=== PATIENT | female | born 1975 | race Caucasian/White ===

== ENCOUNTER 2022-04-23 08:00 | Outpatient (CLI) | payer MEDICAID ==
--- NOTE | 2022-04-23 18:17 | XRAY Report ---
PROCEDURE: Finger(s) LT INDICATIONS: LEFT PINKIE FINGER INJURY TECHNIQUE: AP hand, 2 views of the fifth digit acquired. COMPARISON: Right hand and finger radiographs same day FINDINGS: Bones: No fractures or dislocations. Small lucent focus with a narrow zone of transition at the bas e of the fourth digit middle phalanx, possible subchondral cyst or enchondroma. Soft tissues: No suspicious soft tissue calcifications. IMPRESSION: No acute fracture identified. If symptoms persist, follow-up radiographs and/or CT or MRI may be help ful for further evaluation. Reviewed by: Aneesh Vasquez MD on 04/23/2022 6:15 PM PST Approved by: Aneesh Vasquez MD on 04/23/2022 6:15 PM PST Station ID: [id number]
--- NOTE | 2022-04-23 18:19 | XRAY Report ---
PROCEDURE: Finger(s) RT INDICATIONS: RIGHT RING FINGER INJURY TECHNIQUE: AP hand, 2 views of the fourth digit acquired. COMPARISON: Left hand and finger radiographs same day FINDINGS: Bones: No acute fractures or dislocations. No suspicious bony lesions. Soft tissues: No suspicious soft tissue calcifications. IMPRESSION: No acute fracture identified. If symptoms persist, follow-up radiographs and/or CT or MRI may be help ful for further evaluation. Reviewed by: Aneesh Vasquez MD on 04/23/2022 6:18 PM [facility] Approved by: Aneesh Vasquez MD on 04/23/2022 6:18 PM [facility] Station ID: [id number]
== END 2022-04-23 23:59 | disposition home or self-care (01) ==
LOC: DI.S 08:00
PROVIDERS: ATTEND Physician Assistant Medical
DX: S67.92XA Crushing injury of unspecified part(s) of left wrist, hand and fingers, initial encounter (principal)

== ENCOUNTER 2023-06-23 18:12 | Day surgery (SDC) | payer MEDICAID ==
--- NOTE | 2023-06-23 18:35 | ED Physician Documentation ---
PD HPI ABD PAIN - Stated complaint Stated Complaint: ABD PX - Chief complaint Chief Complaint: Abd Pain - History obtained from History obtained from: Patient - History of Present Illness Timing - onset: Today (Onset around 4 this morning of generalized to mid abdominal pain that has become more localized to the right lower quadrant through the day and increased in severity. Nausea and vomiting. Normal bowel movement today. No dysuria.) Timing - duration: Hours (12) Timing - details: Gradual onset, Still present Quality: Cramping, Aching, Pain Location: Periumbilical (The pain started more generalized and periumbilical and is moved to the right lower quadrant specifically and increased in severity.), RLQ Radiation: No: Chest, Right flank Improved by: No: Vomiting, BM Associated symptoms: Nausea, Vomiting (4 times through the day). No: Fever, Diarrhea, Constipation Similar symptoms before: Has not had sx before Recently seen: Clinic (Seen at walk-in clinic first and referred here for further evaluation more promptly due to severity of pain.) Review of Systems Constitutional: denies: Fever, Chills Nose: denies: Rhinorrhea / runny nose, Congestion Throat: denies: Sore throat Respiratory: denies: Cough GI: reports: Abdominal Pain, Nausea, Vomiting. denies: Constipation, Diarrhea : denies: Dysuria, Discharge, Irregular menses PD PAST MEDICAL HISTORY - Past Medical History Past Medical History: No - Past Surgical History Past Surgical History: No - Present Medications Home Medications: Ambulatory Orders Medication Instructions Recorded Confirmed No Known Home Medications 06/23/23 06/23/23 - Allergies Allergies/Adverse Reactions: Allergies Allergy/AdvReac Type Severity Reaction Status Date / Time No Known Drug Allergies Allergy Verified 06/23/23 18:21 - Social History Does the pt smoke?: No Smoking Status: Former smoker Does the pt drink ETOH?: Yes ETOH Use: Other Does the pt have substance abuse?: No Substance Use and Type: Marijuana PD ED PE NORMAL - Vitals Vital signs reviewed: Yes - General General: Alert and oriented X 3, Well developed/nourished, Other (Appears in considerable pain with right lower quadrant tenderness.) - Cardiac Cardiac: RRR, No murmur - Respiratory Respiratory: No respiratory distress, Clear bilaterally - Abdomen Abdomen: Soft, Non distended, No organomegaly, Other (Markedly tender with percussion and rebound tenderness in the right lower quadrant. Some referred tenderness from the left lower. No general peritoneal signs.) - Female Female : Deferred - Rectal Rectal: Deferred - Back Back: No CVA TTP - Derm Derm: Normal color - Neuro Neuro: Alert and oriented X 3, No motor deficit, Normal speech Results - Vitals Vitals: Vital Signs - 24 hr 06/23/23 18:15 Temperature 37 C Heart Rate 88 Respiratory 16 Rate Blood Pressure 128/88 H O2 Saturation 98 Oxygen O2 Source Room air - Labs Labs: Laboratory Tests 06/23/23 06/23/23 06/23/23 18:43 18:43 18:43 WBC 19.0 H RBC 5.02 Hgb 12.3 Hct 40.1 MCV 79.9 L MCH 24.5 L MCHC 30.7 L RDW 14.5 Plt Count 304 MPV 11.2 H Neut # (Auto) 16.8 H Lymph # (Auto) 1.3 L [place] # (Auto) 0.8 Eos # (Auto) 0.0 Baso # (Auto) 0.0 Absolute Nucleated RBC 0.00 Nucleated RBC % 0.0 Sodium 136 Potassium 3.5 Chloride 102 Carbon Dioxide 26 Anion Gap 8.0 BUN 11 Creatinine 0.6 Estimated GFR (MDRD) 107 Glucose 133 H Calcium 9.4 Total Bilirubin 0.6 AST 13 ALT 12 Alkaline Phosphatase 50 Total Protein 6.9 Albumin 4.3 Globulin 2.6 Albumin/Globulin Ratio 1.7 Lipase < 10 L Serum HCG, Qual NEGATIVE Urine Color Urine Clarity Urine pH Ur Specific [place] Urine Protein Urine Glucose (UA) Urine Ketones Urine Occult Blood Urine Nitrite Urine Bilirubin Urine Urobilinogen Ur Leukocyte Esterase Ur Microscopic Review Urine Culture Comments 06/23/23 19:20 WBC RBC Hgb Hct MCV MCH MCHC RDW Plt Count MPV Neut # (Auto) Lymph # (Auto) [place] # (Auto) Eos # (Auto) Baso # (Auto) Absolute Nucleated RBC Nucleated RBC % Sodium Potassium Chloride Carbon Dioxide Anion Gap BUN Creatinine Estimated GFR (MDRD) Glucose Calcium Total Bilirubin AST ALT Alkaline Phosphatase Total Protein Albumin Globulin Albumin/Globulin Ratio Lipase Serum HCG, Qual Urine Color YELLOW Urine Clarity CLEAR Urine pH 6.0 Ur Specific [place] <=1.005 Urine Protein NEGATIVE Urine Glucose (UA) NEGATIVE Urine Ketones NEGATIVE Urine Occult Blood NEGATIVE Urine Nitrite NEGATIVE Urine Bilirubin NEGATIVE Urine Urobilinogen 0.2 (NORMAL) Ur Leukocyte Esterase NEGATIVE Ur Microscopic Review NOT INDICATED Urine Culture Comments NOT INDICATED PD Medical Decision Making - ED course Complexity details: reviewed results, considered differential (Onset this morning of mid to general belly pain with nausea that has progressed to right lower quadrant and increased in severity. Very concerning for appendicitis. Consider ovarian cyst or torsion or an hemorrhage. Less likely UTI or kidney stone but evaluate with CT.), d/w patient ED course: SYmptoms and progression and exam most c/w appendicitis. Pending CT at time of shift change. Departure - Departure Disposition: ED Transfer to [facility] Clinical Impression: Appendicitis Abdominal pain Qualifiers: Abdominal location: right lower quadrant Qualified Code(s): R10.31 - Right lower quadrant pain Condition: Good
[2023-06-23] MEDS: SODIUM CHLORIDE 0.9% 1,000 ML IV STA ×2 (18:41→19:50)
[2023-06-23] MEDS: ONDANSETRON 4 MG/2 ML VIAL IVP STA (18:48)
[2023-06-23] MEDS: KETOROLAC 15 MG/ML VIAL IVP STA (18:51)
[2023-06-23 19:04] LABS: BASOPHILS % (AUTO) 0.2 %; HCT - HEMATOCRIT 40.1 % (37.0-47.0); HGB - HEMOGLOBIN 12.3 g/dL (12.0-16.0); LYMPHOCYTES # (AUTO) 1.3 10^3/uL (1.5-3.5); LYMPHOCYTES % (AUTO) 6.7 %; MEAN CORPUSCULAR HEMOGLOBIN 24.5 pg (27.0-31.0); MEAN CORPUSCULAR HGB CONC 30.7 g/dL (32.0-36.0); MEAN CORPUSCULAR VOLUME 79.9 fL (81.0-99.0); MEAN PLATELET VOLUME 11.2 fL (7.9-10.8); MONOCYTES # (AUTO) 0.8 10^3/uL (0.0-1.0); MONOCYTES % (AUTO) 4.2 %; NEUTROPHILS # (AUTO) 16.8 10^3/uL (1.5-6.6); NEUTROPHILS % (AUTO) 88.3 %; PLT - PLATELET COUNT 304 10^3/uL (130-450); RED BLOOD COUNT 5.02 10^6/uL (4.20-5.40); RED CELL DISTRIBUTION WIDTH 14.5 % (12.0-15.0)
[2023-06-23] MEDS: HYDROmorphone 0.5 MG/0.5 ML SYRINGE IVP STA (19:21)
[2023-06-23 19:22] LABS: ALBUMIN 4.3 g/dL (3.2-5.5); ALBUMIN/GLOBULIN RATIO 1.7 (1.0-2.2); ALKALINE PHOSPHATASE 50 IU/L (42-121); ALT ALANINE AMINOTRANSFERASE 12 IU/L (10-60); AST ASPARTATE AMINOTRANSFERASE 13 IU/L (10-42); BILIRUBIN,TOTAL 0.6 mg/dL (0.2-1.0); BUN - BLOOD UREA NITROGEN 11 mg/dL (6-20); CALCIUM 9.4 mg/dL (8.5-10.3); CARBON DIOXIDE - CO2 26 mmol/L (21-32); CHLORIDE 102 mmol/L (101-111); CREATININE 0.6 mg/dL (0.6-1.3); GFR - MDRD 107 (>89); GLUCOSE 133 mg/dL (74-104); POTASSIUM 3.5 mmol/L (3.5-4.5); SODIUM 136 mmol/L (135-145); TOTAL PROTEIN 6.9 g/dL (6.4-8.9)
[2023-06-23 19:27] LABS: HCG,QUALITATIVE BLOOD NEGATIVE
[2023-06-23 19:28] LABS: LIPASE < 10 U/L (11-82)
[2023-06-23] MEDS ORDERED: iohexoL-300 100 ML VIAL ONE (19:41)
[2023-06-23 19:44] LABS: BILIRUBIN,URINE NEGATIVE (NEGATIVE); GLUCOSE, URINE (UA) NEGATIVE (NEGATIVE); KETONES,URINE (UA) NEGATIVE (NEGATIVE); LEUKOCYTE ESTERASE, URINE NEGATIVE (NEGATIVE); NITRITE,URINE NEGATIVE (NEGATIVE); OCCULT BLOOD,URINE NEGATIVE (NEGATIVE); PROTEIN,URINE NEGATIVE (NEGATIVE); UROBILINOGEN,URINE 0.2 (NORMAL) E.U./dL (NORMAL)
[2023-06-23 19:45] LABS: CLARITY,URINE CLEAR (CLEAR)
[2023-06-23] MEDS: iohexoL-300 100 ML VIAL IVP ONE (20:12)
--- NOTE | 2023-06-23 21:04 | CT Report ---
PROCEDURE: Abdomen/Pelvis W INDICATIONS: mid to RLQ abd pain since this AM CONTRAST: Omni 300 100ml TECHNIQUE: After the administration of intravenous contrast, a CT scan of the abdomen and pelvis was performed. Images were recorded and evaluated at appropriate window settings. Reformats: coronal and sagittal. F or radiation dose reduction, the following was used: automated exposure control, adjustment of mA and /or kV according to patient size. COMPARISON: None. FINDINGS: Image quality: Diagnostic. Lower chest: Unremarkable. Liver: No solid mass. Gallbladder and biliary tree: No radiopaque stones or wall thickening. No biliary dilation. Spleen: No splenomegaly. Pancreas: No pancreatic ductal dilation. Adrenals: No adrenal nodule. Kidneys and ureters: No hydronephrosis. No renal cystic lesion which requires follow up. No solid mas s. Stomach, bowel and peritoneum: There is no bowel obstruction. Oral contrast is seen in the proximal a scending colon. Enlarged appendix measures up to 1.2 cm in size with appendiceal wall thickening and to moderate periappendiceal fat stranding suggestive of acute appendicitis series 4 image 61. Questio nable ascending and transverse colon wall thickening most likely due to under distention. No signific ant pericolonic fat stranding is seen. No abscess collection. No free fluid of free air. Lymph nodes: No central or retroperitoneal adenopathy. Small right lower quadrant mesenteric lymph no tien are seen. Vessels: No infrarenal aortic aneurysm. PELVIS Reproductive organs: Small bilateral ovarian cysts versus dominant follicles are seen.. Bladder: No abnormal wall thickening, accounting for underdistention. Pelvic lymph nodes: No pelvic adenopathy by size criteria. Bones: No aggressive osseous abnormality. Other: No significant ventral or inguinal hernia. IMPRESSION: 1. Finding is consistent with acute appendicitis. No abscess collection. No signs of perforation. Sma ll adjacent right lower quadrant mesenteric lymph nodes likely reactive in nature. 2. No bowel obstruction. Questionable ascending colon and transverse colon wall thickening most likel y due to under distention. Low-grade colitis cannot be entirely excluded suggest clinical correlation and follow-up. Reviewed by: Kirit Hinojosa MD on 06/23/2023 9:03 PM PDT Approved by: Kirit Hinojosa MD on 06/23/2023 9:03 PM PDT Station ID: [id number]
--- NOTE | 2023-06-23 22:34 | ED Physician Documentation ---
ED Addendum - Addendum Addendum: 06/23/23 22:33 I received signout/turnover of care from Dr. Interiano; please see his note for complete H&P. At the time of signout, CT of the abdomen and pelvis is pending. The results of the study are consistent with acute appendicitis without evidence of abscess nor perforation. I briefly evaluated the patient. She is in NAD but has significant tenderness to palpation of the right lower quadrant. Her abdominal exam on my evaluation is not suggestive of peritonitis. I discussed this case with Dr. Flood (on-call surgery for [facility]), who will admit patient to [facility] for planned appendectomy in the a.m.
[2023-06-23] MEDS ORDERED: SODIUM CHLORIDE FLUSH 0.9% 10 ML SYRINGE IVP PRN (22:38)
[2023-06-23] MEDS: PIPERACILLIN/TAZOBACTAM 3.375 GM in SODIUM CHLORIDE 0.9% MINIBAG 100 ML IV SCH (23:03)
[2023-06-23] MEDS: HYDROmorphone 1 MG/ML CARPUJECT IVP PRN (23:03)
[2023-06-24] MEDS: SODIUM CHLORIDE 0.9% 1,000 ML IV SCH (00:35)
[2023-06-24] MEDS: ACETAMINOPHEN 1,000 MG/100 ML 1,000 MG/100 ML BAG IV PRN (01:25)
[2023-06-24] MEDS: SODIUM CHLORIDE FLUSH 0.9% 10 ML SYRINGE IVP SCH (01:29)
[2023-06-24] MEDS ORDERED: SODIUM CHLORIDE 0.9% MINIBAG 100 ML IV ONE (05:35)
--- NOTE | 2023-06-24 06:43 | HISTORY & PHYSICAL EXAMINATION ---
HPI - Admitted From Admitted from: ED - History Obtained From History obtained from: Patient - History of Present Illness HPI Comment/Other: 47F, otherwise healthy, with onset of periumbilical abdominal pain associated with nausea and repeated emesis at 0400 on 06/22. Pain progressed to RLQ and efforts at relieving typical GI upset/constipationdid not improve the pain. Denies fever, SOB, CP. Last ate a small amount of food at 4pm yesterday. Never had pain like this before. PMH/PSH - Past Medical History Cardiovascular: positive: None Respiratory: positive: None Neuro: positive: None Endocrine/Autoimmune: positive: None GI: positive: None : positive: None Psych: positive: Other Musculoskeletal: positive: None Derm: positive: None MRSA Hx?: No Other Past Medical History: mild autism - Past Surgical History Other past surgical history: No PSH Social & Family Hx - Living Situation Living Situation: Other (Lives with 10yo son in [place]. *Traveling from [facility] to [place] by car tomorrow and to [place] by plane in 2 days.) - Social History Does the pt smoke?: No Smoking Status: Former smoker (20pk yr history, quit 11 years ago) Does the pt drink ETOH?: Yes ETOH Use: Other (social) Does the pt have substance abuse?: No Substance Use and Type: Marijuana - POLST Patient has POLST: No - Family History Family History Comment/Other: noncontributory Meds/Allgy - Home Medications Home Medications: Ambulatory Orders Medication Instructions Recorded Confirmed No Known Home Medications 06/23/23 06/23/23 - Allergies Allergies/Adverse Reactions: Allergies Allergy/AdvReac Type Severity Reaction Status Date / Time No Known Drug Allergies Allergy Verified 06/23/23 18:21 Review of Systems - Gastrointestinal Gastrointestinal: reports: Abdominal pain, Nausea, Vomiting Exam - Vital Signs Reviewed Vital Signs: Yes Vital Signs: Vital Signs x48h Temp Pulse Resp BP Pulse Ox 06/24/23 05:31 37.1 C 79 20 116/70 94 06/24/23 01:03 36.5 C 77 20 124/76 98 - Physical Exam General Appearance: positive: No acute distress Eyes Bilateral: positive: Normal inspection, PERRL ENT: positive: ENT inspection nml, Pharynx nml, No signs of dehydration Neck: positive: Nml inspection, Thyroid nml, No JVD, Trachea midline Respiratory: positive: Chest non-tender, No respiratory distress, Breath sounds nml Cardiovascular: positive: Regular rate & rhythm, No murmur, No gallop Peripheral Pulses: positive: 2+ Abdomen: positive: No distention, Tenderness (focal RLQ tenderness, + rosvings sign) Skin: positive: Color nml, No rash, Warm, Dry Extremities: positive: Non-tender, Full ROM, Nml appearance Neurologic/Psychiatric: positive: Oriented x3, Mood/affect nml Results - Lab Results Lab results reviewed: Yes Fish Bones: 06/23/23 18:43 06/23/23 18:43 Other Lab Results: Lab Results x24hrs 06/23/23 06/23/23 06/23/23 Range/Units 19:20 18:43 18:43 WBC (4.8-10.8) x10^3/uL RBC (4.20-5.40) 10^6/uL Hgb (12.0-16.0) g/dL Hct (37.0-47.0) % MCV (81.0-99.0) fL MCH (27.0-31.0) pg MCHC (32.0-36.0) g/dL RDW (12.0-15.0) % Plt Count (130-450) 10^3/uL MPV (7.9-10.8) fL Neut # (Auto) (1.5-6.6) 10^3/uL Lymph # (Auto) (1.5-3.5) 10^3/uL [place] # (Auto) (0.0-1.0) 10^3/uL Eos # (Auto) (0.0-0.7) 10^3/uL Baso # (Auto) (0.0-0.1) 10^3/uL Absolute Nucleated RBC x10^3/uL Nucleated RBC % /100WBC Sodium 136 (135-145) mmol/L Potassium 3.5 (3.5-4.5) mmol/L Chloride 102 (101-111) mmol/L Carbon Dioxide 26 (21-32) mmol/L Anion Gap 8.0 (6-13) BUN 11 (6-20) mg/dL Creatinine 0.6 (0.6-1.3) mg/dL Estimated GFR (MDRD) 107 (>89) Glucose 133 H (74-104) mg/dL Calcium 9.4 (8.5-10.3) mg/dL Total Bilirubin 0.6 (0.2-1.0) mg/dL AST 13 (10-42) IU/L ALT 12 (10-60) IU/L Alkaline Phosphatase 50 (42-121) IU/L Total Protein 6.9 (6.4-8.9) g/dL Albumin 4.3 (3.2-5.5) g/dL Globulin 2.6 (2.1-4.2) g/dL Albumin/Globulin Ratio 1.7 (1.0-2.2) Lipase < 10 L (11-82) U/L Serum HCG, Qual NEGATIVE Urine Color YELLOW Urine Clarity CLEAR (CLEAR) Urine pH 6.0 (5.0-7.5) PH Ur Specific [place] <=1.005 (1.002-1.030) Urine Protein NEGATIVE (NEGATIVE) mg/dL Urine Glucose (UA) NEGATIVE (NEGATIVE) mg/dL Urine Ketones NEGATIVE (NEGATIVE) mg/dL Urine Occult Blood NEGATIVE (NEGATIVE) Urine Nitrite NEGATIVE (NEGATIVE) Urine Bilirubin NEGATIVE (NEGATIVE) Urine Urobilinogen 0.2 (NORMAL) (NORMAL) E.U./dL Ur Leukocyte Esterase NEGATIVE (NEGATIVE) Ur Microscopic Review NOT INDICATED Urine Culture Comments NOT INDICATED 06/23/23 Range/Units 18:43 WBC 19.0 H (4.8-10.8) x10^3/uL RBC 5.02 (4.20-5.40) 10^6/uL Hgb 12.3 (12.0-16.0) g/dL Hct 40.1 (37.0-47.0) % MCV 79.9 L (81.0-99.0) fL MCH 24.5 L (27.0-31.0) pg MCHC 30.7 L (32.0-36.0) g/dL RDW 14.5 (12.0-15.0) % Plt Count 304 (130-450) 10^3/uL MPV 11.2 H (7.9-10.8) fL Neut # (Auto) 16.8 H (1.5-6.6) 10^3/uL Lymph # (Auto) 1.3 L (1.5-3.5) 10^3/uL [place] # (Auto) 0.8 (0.0-1.0) 10^3/uL Eos # (Auto) 0.0 (0.0-0.7) 10^3/uL Baso # (Auto) 0.0 (0.0-0.1) 10^3/uL Absolute Nucleated RBC 0.00 x10^3/uL Nucleated RBC % 0.0 /100WBC Sodium (135-145) mmol/L Potassium (3.5-4.5) mmol/L Chloride (101-111) mmol/L Carbon Dioxide (21-32) mmol/L Anion Gap (6-13) BUN (6-20) mg/dL Creatinine (0.6-1.3) mg/dL Estimated GFR (MDRD) (>89) Glucose (74-104) mg/dL Calcium (8.5-10.3) mg/dL Total Bilirubin (0.2-1.0) mg/dL AST (10-42) IU/L ALT (10-60) IU/L Alkaline Phosphatase (42-121) IU/L Total Protein (6.4-8.9) g/dL Albumin (3.2-5.5) g/dL Globulin (2.1-4.2) g/dL Albumin/Globulin Ratio (1.0-2.2) Lipase (11-82) U/L Serum HCG, Qual Urine Color Urine Clarity (CLEAR) Urine pH (5.0-7.5) PH Ur Specific [place] (1.002-1.030) Urine Protein (NEGATIVE) mg/dL Urine Glucose (UA) (NEGATIVE) mg/dL Urine Ketones (NEGATIVE) mg/dL Urine Occult Blood (NEGATIVE) Urine Nitrite (NEGATIVE) Urine Bilirubin (NEGATIVE) Urine Urobilinogen (NORMAL) E.U./dL Ur Leukocyte Esterase (NEGATIVE) Ur Microscopic Review Urine Culture Comments - Diagnostic Imaging Results Diagnostic Imaging Results: positive: Final report reviewed, Read independently (1.2cm dilated, inflammed appendix with periappendiceal fat stranding. no evidence of perforation.) Impression/Plan - Problem List Problem List: 1. Acute appendicitis 47yoF with no other comorbidities with acute appendicitis. HD normal, afebrile, 26hours of pain now, WBC of [address] with 1.2cm appendix without evidence of perforation. Discussed nature of disease and management options to include antibiotics vs surgery. Discussed less reliable timecourse to resolution and risk of recurrence (30-40%) with antibiotics. Discussed risks of surgery to include pain,bleeding, infection, damage to surrounding structures, bowel resection, conversion to open. Discussed postoperative healing restrictions to include no heavy lifting more than 15# for 1 month. Patient understands and would like to proceed with surgery. Discussed patients specific travel plans (is from [place], driving back to [place] (as passenger) and flying to [place] (with 10yo son) in 2 days). Discussed that if surgery is uncomplicated it is reasonable to continue with trip so long as she limits lifting to no mroe than 15#, is not driving herself (long distances or while on narcotics), and is able to seek care at an urgent care should she have any signs/symptoms of a complication (discussed recurrent pain, nausea, vomitting, redness or drainage from the incision, fever, dizzin ess, CP, SOB). Her routine postop check will need to be in [place], with primary care who can refer her to a surgeon as needed. - NPO since 4pm yesterday - IV zosyn - laparoscopic appendectomy this morning. Mago Flood DO, FACS General Surgeon
[2023-06-24] MEDS ORDERED: MIDAZOLAM 2 MG/2 ML VIAL ONE (07:10)
[2023-06-24] MEDS ORDERED: ROCURONIUM 50 MG/5 ML VIAL ONE (07:10)
[2023-06-24] MEDS ORDERED: PROPOFOL 200 MG/20 ML VIAL IVP ONE (07:10)
[2023-06-24] MEDS ORDERED: fentaNYL 100 MCG/2 ML VIAL ONE ×2 (07:10→11:06)
--- NOTE | 2023-06-24 07:25 | ANESTHESIA ---
Pre-Anesthesia VS, & Labs - Diagnosis Acute appendicitis - Procedure lap appy Vital Signs: Temp Pulse Resp BP Pulse Ox O2 Flow Rate 37.1 C 79 20 116/70 94 06/24/23 05:31 06/24/23 05:31 06/24/23 05:31 06/24/23 05:31 06/24/23 05:31 Height: 5 ft 8 in Weight (kg): 79.37 kg Body Mass Index: 26.6 BMI Classification: Overweight - NPO >8 hours - Is Patient ?: No - Lab Results Current Lab Results: Laboratory Tests 06/23/23 18:43: Serum HCG, Qual NEGATIVE 06/23/23 18:43: Sodium 136, Potassium 3.5, Chloride 102, Carbon Dioxide 26, Anion Gap 8.0, BUN 11, Creatinine 0.6, Estimated GFR (MDRD) 107, Glucose 133 H, Calcium 9.4, Total Bilirubin 0.6, AST 13, ALT 12, Alkaline Phosphatase 50, Total Protein 6.9, Albumin 4.3, Globulin 2.6, Albumin/Globulin Ratio 1.7, Lipase < 10 L 06/23/23 18:43: WBC 19.0 H, RBC 5.02, Hgb 12.3, Hct 40.1, MCV 79.9 L, MCH 24.5 L , MCHC 30.7 L, RDW 14.5, Plt Count 304, MPV 11.2 H, Neut # (Auto) 16.8 H, Lymph # (Auto) 1.3 L, [place] # (Auto) 0.8, Eos # (Auto) 0.0, Baso # (Auto) 0.0, Absolute Nucleated RBC 0.00, Nucleated RBC % 0.0 Lab results reviewed: Yes Fish Bones: 06/23/23 18:43 06/23/23 18:43 Home Medications and Allergies Home Medications: Ambulatory Orders No Known Home Medications 06/23/23 Active Medications Hydromorphone HCl (Hydromorphone 1 Mg/Ml Carpuject) 0.5 mg IVP Q2HR PRN PRN Reason: Severe Pain (Level 7-10) Last Admin: 06/23/23 23:03 Dose: 0.5 mg Sodium Chloride (Normal Saline 0.9%) 1,000 mls @ 125 mls/hr IV .Q8H ROYAL Last Admin: 06/24/23 01:25 Dose: 125 mls/hr Piperacillin Sod/Tazobactam (Sod 3.375 gm/ Sodium Chloride) 100 mls @ 200 mls/hr IV Q6H ROYAL Last Infusion: 06/24/23 06:42 Dose: Infused Acetaminophen (Acetaminophen) 1,000 mg in 100 mls @ 400 mls/hr IV Q6HR PRN PRN Reason: PAIN Last Infusion: 06/24/23 02:37 Dose: Infused Sodium Chloride (Sodium Chloride Flush 0.9% 10 Ml Syringe) 10 ml IVP 0100,0900,1700 [facility] Last Admin: 06/24/23 01:29 Dose: Not Given Sodium Chloride (Sodium Chloride Flush 0.9% 10 Ml Syringe) 10 ml IVP PRN PRN PRN Reason: NEEDED PER PROVIDER ORDERS No Known Home Medications 06/23/23 Allergies/Adverse Reactions: Allergies Allergy/AdvReac Type Severity Reaction Status Date / Time No Known Drug Allergies Allergy Verified 06/23/23 18:21 Anes History & Medical History - Anesthetic History Family history of Anesthesia Complications: Denies Family history of Malignant Hyperthermia: Denies - Medical History Cardiovascular: reports: None Pulmonary: reports: None Gastrointestinal: reports: None Urinary: reports: None Neuro: reports: None Musculoskeletal: reports: None Endocrine/Autoimmune: reports: None Blood Disorders: reports: None Skin: reports: None Smoking Status: Former smoker (20pk yr history, quit 11 years ago) Psychosocial: reports: No issues indicated History of Cancer?: No Other Past Medical History: mild autism - Surgical History Other Past Surgical History: No PSH Exam General: Alert Dental: WNL Mouth Openin Fingerbreadth Neck Mobility: Normal Mallampati classification: II Thyromental Distance: less than 4 cm Mental/Cognitive Status: Alert/Oriented X3, Normal for patient Plan Anesthesia Type: General Consent for Procedure(s) Verified and Reviewed: Yes Code Status: Attempt Resuscitation ASA classification: 1-Healthy patient Is this case an emergency?: Yes
[2023-06-24] MEDS ORDERED: ATROPINE ABBOJECT 1 MG/10 ML SYRINGE IVP PRN (07:36)
[2023-06-24] MEDS ORDERED: HYDROmorphone 0.5 MG/0.5 ML SYRINGE IVP PRN (07:36)
[2023-06-24] MEDS ORDERED: NALOXONE 0.4 MG/ML VIAL IVP PRN (07:36)
[2023-06-24] MEDS ORDERED: MORPHINE 2 MG/ML CARPUJECT IVP PRN (07:36)
[2023-06-24] MEDS ORDERED: fentaNYL 100 MCG/2 ML VIAL IVP PRN (07:36)
[2023-06-24] MEDS ORDERED: ONDANSETRON 4 MG/2 ML VIAL IVP PRN (07:36)
[2023-06-24] MEDS ORDERED: LIDOCAINE 1%-EPI 1:100000 20 ML MDV ONE (07:41)
[2023-06-24] MEDS ORDERED: BUPIVACAINE 0.25% PF 30 ML VIAL ONE (07:41)
[2023-06-24] MEDS ORDERED: LACTATED RINGERS 1,000 ML IV SCH (08:00)
[2023-06-24] MEDS ORDERED: ONDANSETRON 4 MG/2 ML VIAL ONE (10:13)
[2023-06-24] MEDS ORDERED: DEXAMETHASONE 4 MG/ML VIAL ONE (10:13)
[2023-06-24] MEDS ORDERED: ePHEDrine 50 MG/ML VIAL IVP ONE (10:16)
[2023-06-24] MEDS ORDERED: SUGAMMADEX 200 MG/2 ML VIAL IVP ONE (10:58)
--- NOTE | 2023-06-24 11:00 | PHARMACY PROGRESS NOTE ---
- Best Possible Medication History Admit Date and Time: Processed by: Nursing Medications reviewed in ED?: Yes Medication History completed: Yes Patient Interview: Completed As the person ultimately responsible for medication therapy, providers are able to order a medication from an existing home medication list in [facility] via the "Reconcile Routine" prior to Confirmation of that medication by product support specialist. Such practice is discouraged except when the physician, in their clinical judgment, deems that a medical need exists for a medication without regard to previous use.
[2023-06-24] MEDS: LIDOCAINE 1%-EPI 1:100000 20 ML MDV SUBQ ONE (11:06)
[2023-06-24] MEDS ORDERED: KETOROLAC 30 MG/ML VIAL ONE (11:06)
[2023-06-24] MEDS: BUPIVACAINE 0.25% PF 30 ML VIAL SUBQ ONE (11:06)
[2023-06-24] MEDS: LACTATED RINGERS 1,000 ML IV ONE (11:27)
--- NOTE | 2023-06-24 11:42 | OPERATIVE REPORT ---
Operative Report - General Procedure Date: 06/24/23 Planned Procedure: Laparoscopic appendectomy Pre-Op Diagnosis: Acute appendicitis Procedure Performed: Laparoscopic appendectomy Post Op Diagnosis: Acute perforated appendicitis - Procedure Note Primary Surgeon: Mago Flood DO Anesthesia Provider: Patito Smith Anesthesia Technique: General ET tube Pathology: Appendix Estimated Blood Loss (mL): 10 Indications: 47-year-old female presented to the emergency room with acute appendicitis by CT scan. 24 hours of pain. White blood cell count of 19. Hemodynamically normal. Findings: Moderate amount of turbid fluid in the pelvis. Suppurative appearing appendix grossly. Examination on the back table revealed a perforation in the sidewall of the appendix. However there was no gross abscess encountered. Complications: None - Other Other Information/Narrative: The patient was brought to the operating room with universal protocol observed throughout. She was placed supine on the operating room table with the left arm tucked. A Pepper was not placed. General anesthesia with endotracheal tube was induced by the anesthesia service. A timeout was performed with all members of the team being in agreement. Local anesthetic of 1% lidocaine with epinephrine mixed with Marcaine plain was injected into the infraumbilical skin. a transverse skin incision was made sharply. Blunt dissection down to the level of the fascia was performed. the umbilical stalk was elevated and the fascia was incised sharply in a vertical orientation and the peritoneal cavity was entered bluntly with a Aranza clamp. A 12 mm balloon trocar was placed. The abdomen was insufflated with CO2 gas to a pressure of 15 mmHg which the patient tolerated well. The laparoscope was inserted and visual inspection revealed no evidence of injury upon entry. Graspers were introduced into the abdomen. The appendix was seen to be adherent to the lateral abdominal wall. Adhesions were taken down with blunt dissection. The appendix was elevated and a [place] was used to create a window through the mesentery at the base of the appendix through which a 30 mm blue load staple line was used to divide the appendix at its base. 230 mm vascular load staple lines were used to divide the mesoappendix. The appendix was placed into an Endo Catch bag and extracted through the umbilical port. The staple lines were inspected and noted to be intact and hemostatic. A small amount of hemorrhagic fluid was suctioned from the right lower quadrant. A moderate amount of turbid fluid was suctioned from the pelvis. A fibroid was visible on the uterus photodocumentation was completed. The trocars were removed under direct visualization. The umbilical fascia was closed with an 0 Vicryl [id number] suture. The umbilical wound was irrigated with clean normal saline. Hemostasis in the wound was achieved with Bovie electrocautery and all skin incisions were closed with subcuticular 4-0 Monocryl suture. A dressing of Steri-Strips gauze and Tegaderm was applied. The appendix was examined on the back table and a 4 to 5 mm perforation was observed in the sidewall of the appendix. The patient was extubated and awoken from general anesthesia. There were no complications. All sponge needle counts were correct. The patient was transferred to the PACU in stable condition. Mago Flood DO, FACS General Surgeon
--- NOTE | 2023-06-24 12:00 | DISCHARGE SUMMARY ---
"Discharge Summary Admit Date: 06/23/23 Discharge Date: 06/24/23 Discharging Provider: Mago Flood DO Condition at Discharge: Good Discharge Disposition: 01 Home, Self Care - DIAGNOSES Admission Diagnoses: acute perforated appendicitis - CONSULTS | PROCEDURES Procedures: laparoscopic appendectomy - HOSPITAL COURSE Hospital Course: 47yoF was admitted with acute appendicitis and started on IV zosyn. She underwent laparoscopic appendectomy and was found to have acute perforated appendicitis. She recovered without complications and was discharged on the day of surgery with an additional 3 days of Augmentin for perforated appendicitis. She lives out of town and will have follow up with her primary care in two weeks. - ALLERGIES Allergies/Adverse Reactions: Allergies Allergy/AdvReac Type Severity Reaction Status Date / Time No Known Drug Allergies Allergy Verified 06/23/23 18:21 - MEDICATIONS Home Medications: Ambulatory Orders Medication Instructions Recorded Confirmed Acetaminophen 650 mg PO Q6HR PRN #30 ea 06/24/23 Amox/Clav 875/125 [Augmentin 1 tablet PO Q12H 3 Days #6 tablet 06/24/23 875/125 Tab] Ibuprofen [Motrin] 600 mg PO Q6H PRN #30 tab 06/24/23 oxyCODONE [Roxicodone] 5 mg PO Q4-6H PRN 7 Days #5 tablet 06/24/23 - PHYSICAL EXAM AT DISCHARGE General Appearance: positive: No acute distress Eyes Bilateral: positive: Normal inspection ENT: positive: ENT inspection nml Neck: positive: Nml inspection Respiratory: positive: Chest non-tender Cardiovascular: positive: Regular rate & rhythm Abdomen: positive: Other (Operative dressings CDI, appropriate postop tenderness) Skin: positive: Color nml Extremities: positive: Non-tender Neurologic/Psychiatric: positive: Oriented x3 - LABS Result Diagrams: 06/23/23 18:43 06/23/23 18:43 - DIAGNOSTIC IMAGING Diagnostic Imaging Results: Final report reviewed - FOLLOW UP Follow Up: 2 weeks with primary care, who may refer to local surgeon as needed, as patient lives out of town 5 hours away ([facility]) - TIME SPENT Time Spent in Discharge (Minutes): 20"
[2023-06-24] MEDS ORDERED: oxyCODONE 5 MG TABLET PO PRN (12:05)
--- NOTE | 2023-06-24 14:16 | ANESTHESIA POST OP EVALUATION ---
Anesthesia Post Eval - Post Anesthesia Eval Vitals: Last Vital Signs Temp 36.7 C 06/24/23 13:29 Pulse 78 06/24/23 13:29 Resp 18 06/24/23 13:29 BP 104/63 06/24/23 13:29 Pulse Ox 94 06/24/23 13:29 O2 Flow Rate CV Function Including HR & BP: Stable Pain Control: Satisfactory Nausea & Vomiting: Negative Mental Status: Baseline Respiratory Status: Airway Patent Hydration Status: Satisfactory Anesthesia Complications: None
[2023-06-24 16:12] VITALS: BP 124/73; O2SAT 96
== END 2023-06-24 15:45 | disposition home or self-care (01) ==
LOC: ED 18:12 → SDS 23:11 → MS2 23:13 → SDS 06-24 15:45
PROVIDERS: ATTEND Surgery
PROC: 0DTJ4ZZ Resection of Appendix, Percutaneous Endoscopic Approach (ICD-10-PCS; principal; 2023-06-23)
DX: K35.32 Acute appendicitis with perforation, localized peritonitis, and gangrene, without abscess (principal); Z87.891 Personal history of nicotine dependence
CPT/HCPCS: 36415; 44970; 74177; 80053; 81003; 83690; 84703; 85025; 96374; 96375; 99285; J0131; J1170; J7120; Q9967; 81001; 87086